=== PATIENT | female | born 1950 | race Caucasian/White ===

== ENCOUNTER 2017-09-17 14:53 | Emergency (ER) | payer OTHER ==
[~2017-09-17] VITALS: Ht 157.5 cm; Wt 57.0 kg
[2017-09-17 14:55] VITALS: BP 180/93; PULSE 82; RESP 18; TEMP 98.1; O2SAT 97
--- NOTE | 2017-09-17 15:53 | PD ---
HPI Chief Complaint: Fall Time Seen by Provider: 15:36 Travel History International Travel<30 days: Yes Contact w/Intl Traveler<30days: Yes Name of Country Traveled to: [place], [facility], [place] Traveled to known affect area: No History of Present Illness HPI Patient is a 67-year-old female who presents to emergency room with complaints of left shoulder, left elbow pain. Patient reports that she was at home, reports that she tripped and fell and landed her left shoulder. Denies any trauma to head/neck. Denies LOC. Patient reports that she is currently not on any anticoagulants. Patient reports that chest pain or shortness of breath, no abdominal pain. Patient is ambulating in the emergency room with a normal gait, no pain to pelvis or hip. Reports that she is right hand dominant. C/o of only pain to her left shoulder/elbow PFSH Past Surgical History Hysterectomy: Yes (PARTIAL) Social History Tobacco Use: No Review of Systems General / Constitutional: No: Fever Eyes: No: Visual changes HENT: No: Headaches Cardiovascular: No: Chest Pain or Discomfort Respiratory: No: Shortness of Breath Gastrointestinal: No: Abdominal Pain Genitourinary: No: Dysuria Musculoskeletal: Positive: Limited ROM (left shoulder/left elbow), Pain (left shoulder/elbow) Skin: No Rash Neurologic: No: Weakness Psychiatric: No: Depression Endocrine: No: Polydipsia Hematologic/Lymphatic: No: Easy Bruising Physical Exam Narrative GENERAL: Well-nourished, well-developed patient. SKIN: Focused skin assessment warm/dry. HEAD: Normocephalic. EYES: No scleral icterus. No injection or drainage. NECK: Supple, trachea midline. No JVD or lymphadenopathy. No cervical midline tenderness CARDIOVASCULAR: Regular rate and rhythm without murmurs, gallops, or rubs. RESPIRATORY: Breath sounds equal bilaterally. No accessory muscle use. GASTROINTESTINAL: Abdomen soft, non-tender, nondistended. MUSCULOSKELETAL: No cyanosis, or edema. RUE: normal exam LUE: no obvious fx, no open deformities, patient with pain with ROM to left shoulder and left elbow, no bruising or abrasions or lacerations noted, pulses intact, neurovascularly intact BACK: Nontender without obvious deformity. No CVA tenderness. No midline thoracic or lumbar tenderness Data Data Last Documented VS Vital Signs Date Time Temp Pulse Resp B/P (MAP) Pulse Ox O2 Delivery O2 Flow Rate FiO2 09/17/17 14:55 98.1 82 18 180/93 (122) 97 Orders Orders Shoulder, Complete (>2vws) (09/17/17 ) Elbow, Complete (4 Vws) (09/17/17 ) Splinting (09/17/17 ) Support Splint (09/17/17 16:23) MDM Medical Decision Making Medical Screen Exam Complete: Yes Emergency Medical Condition: Yes Medical Record Reviewed: Yes Interpretation(s) Vital Signs Date Time Temp Pulse Resp B/P (MAP) Pulse Ox O2 Delivery O2 Flow Rate FiO2 09/17/17 14:55 98.1 82 18 180/93 (122) 97 Differential Diagnosis Shoulder sprain/fracture, elbow sprain/fracture Narrative Course Patient with no trauma to the head or neck, no loss of consciousness. X-rays of the left shoulder as well as the left elbow obtained. Last Impressions Shoulder X-Ray 09/17/17 0000 Signed Impressions: Service Date/Time: Sunday, September 17, 2017 15:53 - CONCLUSION: Normal examination for a patient of this age. Michael Alford MD Elbow X-Ray 09/17/17 0000 Signed Impressions: Service Date/Time: Sunday, September 17, 2017 16:01 - CONCLUSION: Nondisplaced intra-articular fracture involving the olecranon process. Michael Alford MD Patient with a nondisplaced fracture involving the left olecranon process. Patient was placed in a splint as well as a sling but ER ortho techs. Copies of patient's x-rays were given to her as she will need to follow-up with orthopedic surgeon as outpatient. Patient will return to the emergency room as needed. Diagnosis Primary Impression: Olecranon fracture Qualified Codes: S52.022A - Displaced fracture of olecranon process without intraarticular extension of left ulna, initial encounter for closed fracture Referrals: William Jackson MD Patient Instructions: General Instructions Additional Instructions: Please provide patient with a copy of their lab work and studies at discharge* * Please follow up with your primary care doctor in 2-3 days Return to the ER if symptoms worsen or progress Return to the ER as needed Please follow up with orthopedic surgery in 2-3 days, bring a copy of your studies with you to your doctor's office appointment Disposition: 01 DISCHARGE HOME Condition: Stable Delma Cr DO Sep 17, 2017 15:53
--- NOTE | 2017-09-17 16:17 | RADRPT ---
EXAM DATE/TIME: 09/17/2017 15:53 [facility] COMPARISON: No previous studies available for comparison. INDICATIONS : Patient complains of left shoulder pain status post fall. MEDICAL HISTORY : None. SURGICAL HISTORY : None. ENCOUNTER: Initial ACUITY: 2 days PAIN SCORE: 8/10 LOCATION: Left Shoulder FINDINGS: Multiple view examination of the left shoulder demonstrates no evidence of fracture or dislocation. The glenohumeral and acromioclavicular joints are maintained. There is normal range of motion betwee n internal and external rotation. Bony mineralization is normal. CONCLUSION: Normal examination for a patient of this age. Michael Alford MD on September 17, 2017 at 16:15 Board Certified Radiologist. This report was verified electronically.
--- NOTE | 2017-09-17 16:19 | RADRPT ---
EXAM DATE/TIME: 09/17/2017 16:01 [facility] COMPARISON: No previous studies available for comparison. INDICATIONS : Patient complains of left elbow pain status post fall. MEDICAL HISTORY : None. SURGICAL HISTORY : None. ENCOUNTER: Initial ACUITY: 2 days PAIN SCORE: 8/10 LOCATION: Left Elbow FINDINGS: There is a fracture through the olecranon process. The fracture line extends into the articulating gian int surface consisting with an intra-articular fracture. There is evidence of a joint effusion. No gian int dislocation is demonstrated. The distal humerus is grossly intact. The proximal radius appears to be grossly intact. CONCLUSION: Nondisplaced intra-articular fracture involving the olecranon process. Michael Alford MD on September 17, 2017 at 16:16 Board Certified Radiologist. This report was verified electronically.
== END 2017-09-17 18:12 | disposition home or self-care (01) ==
LOC: NEPD 14:53
DX: S52.022A Displaced fracture of olecranon process without intraarticular extension of left ulna, initial encounter for closed fracture (principal); W01.0XXA Fall on same level from slipping, tripping and stumbling without subsequent striking against object, initial encounter; Y92.009 Unspecified place in unspecified non-institutional (private) residence as the place of occurrence of the external cause
CPT/HCPCS: 29125; 73030; 73080; 99283

== ENCOUNTER 2018-02-06 06:40 | Emergency (ER) | payer OTHER ==
[~2018-02-06] VITALS: Ht 157.5 cm; Wt 48.0 kg
[2018-02-06 06:43] VITALS: BP 134/71; PULSE 89; RESP 16; TEMP 97.9; O2SAT 98
--- NOTE | 2018-02-06 07:26 | PD ---
HPI Chief Complaint: Fall Time Seen by Provider: 06:57 Travel History International Travel<30 days: No Contact w/Intl Traveler<30days: No Traveled to known affect area: No History of Present Illness HPI 60-year-old female experienced a fall yesterday while walking across her living room. She experiences falls fairly often due to Parkinson's disease. She reports sudden weakness is felt about her legs and she collapses. Today she has pain in the region of the right wrist having landed on the right side yesterday. There was a fall last week with subsequent right hand pain as well. No head trauma. No loss of consciousness. Pain is worse with palpation. Severity is moderate. Pain is constant. PFSH Past Medical History Diminished Hearing: No Parkinson's Disease: Yes Thyroid Disease: Yes (hypothroidism) Tetanus Vaccination: Unknown Influenza Vaccination: No ?: Not Past Surgical History Hysterectomy: Yes (partial ) Social History Alcohol Use: No Tobacco Use: No Substance Use: No Allergies-Medications (Allergen,Severity, Reaction): Coded Allergies: Penicillins (Verified Allergy, Unknown, 02/06/18) Review of Systems Except as stated in HPI: all other systems reviewed are Neg General / Constitutional: No: Fever Physical Exam Narrative GENERAL: 68-year-old female pleasant well-nourished well-developed no acute distress Vital Signs Date Time Temp Pulse Resp B/P (MAP) Pulse Ox O2 Delivery O2 Flow Rate FiO2 02/06/18 06:43 97.9 89 16 134/71 (92) 98 SKIN: Warm and dry. HEAD: Atraumatic. Normocephalic. EYES: Pupils equal and round. No scleral icterus. No injection or drainage. ENT: No nasal bleeding or discharge. Mucous membranes pink and moist. NECK: Trachea midline. No JVD. CARDIOVASCULAR: Regular rate and rhythm. RESPIRATORY: No accessory muscle use. Clear to auscultation. Breath sounds equal bilaterally. GASTROINTESTINAL: Abdomen soft, non-tender, nondistended. Hepatic and splenic margins not palpable. MUSCULOSKELETAL: There is ecchymosis and tenderness about the right wrist. Active range of motion at the right wrist is limited due to pain and swelling. There is no significant tenderness about the greater trochanters. Pelvis is stable. There is no significant elbow tenderness on the left side. NEUROLOGICAL: Awake and alert. No obvious cranial nerve deficits. Motor grossly within normal limits. Five out of 5 muscle strength in the arms and legs. Normal speech. PSYCHIATRIC: Appropriate mood and affect; insight and judgment normal. Data Data Last Documented VS Vital Signs Date Time Temp Pulse Resp B/P (MAP) Pulse Ox O2 Delivery O2 Flow Rate FiO2 02/06/18 06:43 97.9 89 16 134/71 (92) 98 Orders Orders Elbow, Complete (4 Vws) (02/06/18 07:08) Wrist, Complete ([id number]) (02/06/18 07:08) Pelvis, Ap Only (Routine) (02/06/18 ) ^ Splint (02/06/18 09:33) Ed Discharge Order (02/06/18 09:35) MDM Medical Decision Making Medical Screen Exam Complete: Yes Emergency Medical Condition: Yes Medical Record Reviewed: Yes Differential Diagnosis fracture of wrist, contusion, fracture of pelvis Narrative Course Last Impressions Wrist X-Ray 02/06/18 0708 Signed Impressions: Service Date/Time: Tuesday, February 06, 2018 08:29 - CONCLUSION: Comminuted displaced fracture of the distal radial metaphysis, as above, with mild posterior angulation of the distal fragments. Eduar Hager MD Elbow X-Ray 02/06/18 0708 Signed Impressions: Service Date/Time: Tuesday, February 06, 2018 08:33 - CONCLUSION: Suspected ununited fracture fragment at the olecranon. The edges appear fairly smooth. An acute fracture is not clearly detected. Eduar Healy MD Pelvis X-Ray 02/06/18 0000 Signed Impressions: Service Date/Time: Tuesday, February 06, 2018 08:38 - CONCLUSION: No acute abnormality is identified. Eduar Hager MD Patient's right upper extremity will be splinted. Case reviewed with Dr. Gonzalez of hand surgery who will follow-up with the patient this week w plan for scheduled operative repair this week. Diagnosis Primary Impression: Distal radius fracture, right Qualified Codes: S52.501A - Unspecified fracture of the lower end of right radius, initial encounter for closed fracture Additional Impression: Fall Qualified Codes: W19.XXXA - Unspecified fall, initial encounter Referrals: Lucero Gonzalez MD call for appointment Med/Other Pt SpecificInfo: No Change to Meds Scripts Ibuprofen (Ibuprofen) 600 Mg Tab 600 MG PO Q8HR Y for PAIN SCALE 6 TO 10 for 7 Days, TAB 0 Refills Prov: Fabiano Ayoub MD 02/06/18 Disposition: 01 DISCHARGE HOME Condition: Stable Fabiano Ayoub MD Feb 06, 2018 07:26
--- NOTE | 2018-02-06 09:03 | RADRPT ---
EXAM DATE/TIME: 02/06/2018 08:29 [facility] COMPARISON: No previous studies available for comparison. INDICATIONS : Fall two days ago. MEDICAL HISTORY : Parkinson disease. SURGICAL HISTORY : None. ENCOUNTER: Initial ACUITY: 2 days PAIN SCORE: 7/10 LOCATION: Right Wrist FINDINGS: 3 views of the right wrist demonstrate a comminuted fracture of the distal radial metaphysis. Fractur e line extends into the radiocarpal joint and distal radial ulnar joint. There is impaction of the fr acture fragments with also dorsal angulation of the fracture. Distal ulna is intact and there is mild ulnar positive variance. Carpal bones also appear intact. The bones are undermineralized. There is s oft tissue swelling around the wrist joint. No radiopaque foreign body is present. CONCLUSION: Comminuted displaced fracture of the distal radial metaphysis, as above, with mild posterior angulati on of the distal fragments. Eduar Hager MD on February 06, 2018 at 8:58 Board Certified Radiologist. This report was verified electronically.
--- NOTE | 2018-02-06 09:05 | RADRPT ---
EXAM DATE/TIME: 02/06/2018 08:38 [facility] COMPARISON: No previous studies available for comparison. INDICATIONS : Fall two days ago. MEDICAL HISTORY : Parkinson disease. SURGICAL HISTORY : None. ENCOUNTER: Initial ACUITY: 2 days PAIN SCORE: 2/10 LOCATION: Right Pelvis FINDINGS: Single AP view of the pelvis demonstrates no fracture or dislocation. Mineralization is within normal limits. There is no significant arthropathy. No soft tissue abnormality or radiopaque foreign body i s identified. CONCLUSION: No acute abnormality is identified. Eduar Hager MD on February 06, 2018 at 9:02 Board Certified Radiologist. This report was verified electronically.
--- NOTE | 2018-02-06 09:06 | RADRPT ---
EXAM DATE/TIME: 02/06/2018 08:33 [facility] COMPARISON: ELBOW LEFT COMPLETE (4 VWS), September 17, 2017, 16:01. INDICATIONS : Fall on two days ago. MEDICAL HISTORY : Parkinson disease. SURGICAL HISTORY : None. ENCOUNTER: Initial ACUITY: 2 days PAIN SCORE: 4/10 LOCATION: Left Elbow FINDINGS: There is an ununited olecranon fragment seen. Acute fracture was detected on the prior elbow series f rom 09/17/17. No fusion is seen at the fracture site. An elbow effusion is not clearly seen. CONCLUSION: Suspected ununited fracture fragment at the olecranon. The edges appear fairly smooth. An acute fract ure is not clearly detected. Eduar Healy MD on February 06, 2018 at 9:02 Board Certified Radiologist. This report was verified electronically.
[2018-02-06] MEDS ORDERED: IBUP-232 PO (09:39)
== END 2018-02-06 10:43 | disposition home or self-care (01) ==
LOC: NEPE 06:40
DX: S52.501A Unspecified fracture of the lower end of right radius, initial encounter for closed fracture (principal); G20 Parkinson's disease; W19.XXXA Unspecified fall, initial encounter; Y93.01 Activity, walking, marching and hiking; Y92.008 Other place in unspecified non-institutional (private) residence as the place of occurrence of the external cause
CPT/HCPCS: 29125; 72170; 73080; 73110